=== PATIENT | female | born 1950 | race Caucasian/White ===

== ENCOUNTER 2019-10-14 00:56 | Outpatient (CLI) | payer MEDICARE, SELFPAY ==
[2019-10-14 18:35] LABS: SARS-CoV-2 RNA PCR Negative
== END 2019-10-14 00:57 | disposition home or self-care (01) ==
LOC: ANHCOVIDDT 00:57
PROVIDERS: PCP Internal Medicine; Visit Provider Internal Medicine Gastroenterology
DX: Z01.812 Encounter for preprocedural laboratory examination (principal); Z20.828 Contact with and (suspected) exposure to other viral communicable diseases
CPT/HCPCS: 87635; C9803; U0003

== ENCOUNTER 2019-10-16 01:13 | Day surgery (SDC) | payer MEDICARE, SELFPAY ==
[2019-10-08 15:00] VITALS: BMI 33.7
[2019-10-16 08:00] VITALS: BP 148/72; PULSE 60; RESP 18; TEMP 36.7; O2SAT 96
--- NOTE | 2019-10-16 08:13 | PM.IMHP ---
H&P: HPI History of Present Illness Date/Time: 10/16/19 08:13 Chief complaint: barretts esophagus Narrative: Reason for visit is EGD. This very pleasant lady's in consultation request of the primary physician. Impression: A very pleasant lady that is here with complaints of dysphagia. This may be secondary to globus type reaction. We evaluate for underlying ring or stricture. Evidence of intestinal metaplasia at the GE junction. History of esophageal spasm. The patient has a history of alternating constipation and diarrhea. This compatible with IBS. History of adenomatous colon polyps. Obesity. JENIFER. Breast cancer status post lumpectomy. HTN. HLD. Anxiety/depression. Osteoporosis. History PE. Recommendation: EGD. Fiber and probiotic for IBS. Further recommendations will be forthcoming. History: This very pleasant lady has a history of esophageal spasm and dysphagia. She complains dysphagia originating in the back of throat. The dysphagia with solids. She denies any nausea, vomiting, hematemesis, indigestion or significant heartburn. She does have a history of esophageal spasm in the past. Patient does report alternating constipation and diarrhea. She has a history adenomatous colon polyps and IBS. Patient is here for EGD. Physical examination: General: very pleasant patient in no acute distress. HEENT: Head was normocephalic sclerae is clear mouth without masses neck was supple. Heart: Rate rhythm regular without S3 or S4. Lungs: CTA. Abdomen: Soft with no guarding or rigidity. Bowel sounds were active. Neurologic: Cranial nerves 2 through 12 intact. No focal defects. No clonus. Musculoskeletal system: Revealed no joint tenderness or swelling no muscle atrophy. Extremities: Reveal no significant edema. Skin: Warm and dry with normal turgor. Mental status: intact. Patient is alert and oriented. Review of Systems Review of Systems: All systems reviewed & are unremarkable except as noted in HPI and below [facility] Surgical History Surgical History (Updated 10/16/19 @ 08:15 by Maxwell Mckoy MD) H/O thyroidectomy H/O: hysterectomy Social History Social History Gender identity (if verbalized by the patient): Female Meds Home Medications and Allergies Home Medications Medication Instructions Recorded Confirmed Type atorvastatin 20 mg PO DAILY 10/08/19 10/16/19 History escitalopram oxalate 20 mg PO DAILY 10/08/19 10/16/19 History lisinopril 10 mg PO DAILY 10/08/19 10/16/19 History omeprazole 40 mg PO DAILY 10/08/19 10/16/19 History Allergies Allergy/AdvReac Type Severity Reaction Status Date / Time adhesive Allergy Unknown RASH Verified 10/16/19 07:55 Sulfa (Sulfonamide Allergy Unknown Rash Verified 10/16/19 07:55 Antibiotics) sulfamethoxazole Allergy Unknown RASH Verified 10/16/19 07:55 Vital Signs Vital Signs - 24 hr 10/16/19 08:00 Temperature 36.7 C Pulse Rate 60 Respiratory Rate 18 Blood Pressure 148/72 H Pulse Oximetry 96
--- NOTE | 2019-10-16 08:14 | P.PNAN_ITS ---
Anes - Initial Pre Proc Eval Procedure: Operation Date: 10/16/19 08:30 Proposed Procedures p Esophagogastroduodenoscopy - Dwain Garcia DO Date/Time: 10/16/19 08:14 Surgeon: Dwain Garcia DO Pre Op Diagnosis: barretts esophagus Patient Data Age: 68 Gender: F Height: 5 ft 4 in Weight: 90 kg Last Vital Signs Temp 36.7 C 10/16/19 08:00 Pulse 60 10/16/19 08:00 Resp 18 10/16/19 08:00 BP 148/72 H 10/16/19 08:00 Pulse Ox 96 10/16/19 08:00 Allergies Allergy/AdvReac Type Severity Reaction Status Date / Time adhesive Allergy Unknown RASH Verified 10/16/19 07:55 Sulfa (Sulfonamide Allergy Unknown Rash Verified 10/16/19 07:55 Antibiotics) sulfamethoxazole Allergy Unknown RASH Verified 10/16/19 07:55 Home Medications Medication Instructions Recorded Confirmed Type atorvastatin 20 mg PO DAILY 10/08/19 10/16/19 History escitalopram oxalate 20 mg PO DAILY 10/08/19 10/16/19 History lisinopril 10 mg PO DAILY 10/08/19 10/16/19 History omeprazole 40 mg PO DAILY 10/08/19 10/16/19 History Patient hx anesthesia problems: none Family hx anesthesia problems: none [facility] Past Medical History Medical History (Updated 10/16/19 @ 08:15 by Maxwell Mckoy MD) Asthma HTN (hypertension) Hyperlipidemia JENIFER (obstructive sleep apnea) Surgical History Surgical History (Updated 10/16/19 @ 08:15 by Maxwell Mckoy MD) H/O thyroidectomy H/O: hysterectomy Social History Social History Gender identity (if verbalized by the patient): Female Anes - Eval Final PreProcedure Day of Procedure 10/16/19 08:14 Patient weight: obese Heart: regular rate and rhythm Lungs: clear to auscultation Airway: Mallampati scale class II Neurological: alert and oriented Last oral intake: >/= 8 hours ASA classification: III Emergent: no Anesthetic plan: proceed Anesthesia type and monitoring: general GIVS and standard monitoring Informed Consent: The patient's anesthetic plan and its attendant risks and benefits were discussed with the patient/family/POA. Questions were solicited and answers provided to the satisfaction of the patient/family/POA.
[2019-10-16] MEDS: LACTATED RINGERS 1,000 ML 150 ML IV CONT (08:17)
[2019-10-16 09:08] VITALS: BP 142/77; PULSE 69; RESP 22; O2SAT 95
[2019-10-16 09:18] VITALS: BP 144/81; PULSE 62; RESP 15; O2SAT 95
[2019-10-16 09:28] VITALS: BP 157/85; PULSE 63; RESP 18; O2SAT 96
== END 2019-10-16 09:50 | disposition home or self-care (01) ==
PROVIDERS: PCP Internal Medicine; Visit Provider Internal Medicine Gastroenterology
PROC: 0DJ08ZZ Inspection of Upper Intestinal Tract, Via Natural or Artificial Opening Endoscopic (ICD-10-PCS; CPT 43235; principal; 2019-10-16 08:30)
DX: R13.10 Dysphagia, unspecified (principal); D13.2 Benign neoplasm of duodenum; K31.89 Other diseases of stomach and duodenum; I10 Essential (primary) hypertension; E78.5 Hyperlipidemia, unspecified; J45.909 Unspecified asthma, uncomplicated; G47.33 Obstructive sleep apnea (adult) (pediatric); F41.8 Other specified anxiety disorders; M81.0 Age-related osteoporosis without current pathological fracture; E66.9 Obesity, unspecified; Z68.34 Body mass index [BMI] 34.0-34.9, adult; Z85.3 Personal history of malignant neoplasm of breast; Z86.711 Personal history of pulmonary embolism
CPT/HCPCS: 43239; 87081; 88305; J2001; J2704; J7120

== ENCOUNTER 2021-10-17 16:24 | Emergency (ER) | payer OTHER, SELFPAY ==
--- NOTE | ~2021-10-17 | XR_ITS ---
EXAMINATION: XR ankle RT min 3V DATE: 10/17/2021 16:51 INDICATION: Right ankle injury and pain. TECHNIQUE: 4 views of right ankle were obtained. COMPARISON: None. FINDINGS: There is a nondisplaced transverse fracture of distal tip of the fibula. There is curviline ar sclerosis in calcaneal tuberosity, consistent with a stress fracture. There is mild midfoot osteoa rthritis. There are enthesophytes at the posterior and plantar aspects of calcaneal tuberosity. There is an enthesophyte of medial malleolus. Ankle soft tissue swelling is noted. IMPRESSION: 1. Nondisplaced transverse fracture of distal tip of the fibula. 2. Stress fracture of calcaneal tuberosity. Reviewed, dictated and finalized at location A.
[2021-10-17 16:36] VITALS: BP 149/63; PULSE 59; RESP 16; TEMP 36.4; O2SAT 99
--- NOTE | 2021-10-17 17:03 | ED.LOWEXIN ---
HPI - Extremity Injury (Lower) General Chief Complaint: Extremity Injury, Lower Stated Complaint: Right ankle Pain Time Seen by Provider: 10/17/21 17:03 Source: patient Mode of arrival: ambulatory Limitations: no limitations History of Present Illness HPI Narrative: 70-year-old female presents with complaint of pain to right ankle. States that she was walking across the street and tripped and twisted right ankle in a drain hole. Ambulatory with limp. Swelling noted to lateral aspect. Range of motion decreased due to pain. Distal neurovascularly intact. All systems reviewed and negative except as noted above. Related Data Home Medications Medication Instructions Recorded Confirmed atorvastatin 20 mg tablet 20 mg PO DAILY 10/08/19 10/17/21 lisinopril 10 mg tablet 10 mg PO DAILY 10/08/19 10/17/21 Allergies Allergy/AdvReac Type Severity Reaction Status Date / Time adhesive Allergy Unknown RASH Verified 10/17/21 16:40 Sulfa (Sulfonamide Allergy Unknown Rash Verified 10/17/21 16:40 Antibiotics) sulfamethoxazole Allergy Unknown RASH Verified 10/17/21 16:40 Review of Systems Review of Systems: CONSTITUTIONAL: Denies fever, chills, or sweats. EYES: Denies visual changes, redness, or discharge. ENT: Denies rhinorrhea, congestion, sore throat, or otalgia. CARDIOVASCULAR: Denies chest pain, palpitations, or edema. RESPIRATORY: Denies cough or dyspnea. GASTROINTESTINAL: Denies abdominal pain, nausea, vomiting, or diarrhea. GENITOURINARY: Denies dysuria or hematuria. SKIN: Denies rash or itching. MUSCULOSKELETAL: Denies back pain, joint pain, or myalgia. Reports right ankle pain. NEUROLOGIC: Denies headache, numbness, or weakness. PSYCHIATRIC: Denies anxiety or depression. All other systems reviewed are negative, except as documented in HPI. [facility] Past Medical History Medical History (Updated 10/17/21 @ 17:12 by Meera Arreola NP) Asthma HTN (hypertension) Hyperlipidemia JENIFER (obstructive sleep apnea) Surgical History Surgical History (Updated 10/16/19 @ 08:15 by Maxwell Mckoy MD) H/O thyroidectomy H/O: hysterectomy Social History Social History Gender identity (if verbalized by the patient): Female Comments At time of signature, agree with nursing past medical, surgical, social and family history. There is no relevant family history pertinent to the presenting complaint. Exam Narrative: GENERAL: This is a well-nourished, well-developed patient, in no apparent distress. HEAD: normocephalic, atraumatic. EYES: PERRL. Sclera clear/white. Vision is grossly intact. EARS: External ears normal NOSE: External nose normal NECK: Neck supple, non-tender without lymphadenopathy, masses or thyromegaly. CARDIOVASCULAR: Regular rate and rhythm without murmurs, gallops, or rubs. RESPIRATORY: Clear to auscultation. Breath sounds equal bilaterally. No wheezes, rales, or rhonchi. SKIN: warm, Dry, intact with no suspicious lesions or rash, good texture and turgor. NEURO: awake, alert, and oriented to person, place and time. There were no obvious focal neurologic abnormalities. EXTREMITIES: tenderness lateral aspect R ankle with swelling. no deformity. no instability. Course Course Level of Care: Express Care Visit Vital Signs Vital signs: Vital Signs Temperature 36.4 C L 10/17/21 16:36 Pulse Rate 59 L 10/17/21 16:36 Respiratory Rate 16 10/17/21 16:36 Blood Pressure 149/63 H 10/17/21 16:36 Pulse Oximetry 99 10/17/21 16:36 Oxygen Delivery Room Air 10/17/21 16:36 Temperature 36.4 C L 10/17/21 16:36 Pulse Rate 59 L 10/17/21 16:36 Respiratory Rate 16 10/17/21 16:36 Blood Pressure 149/63 H 10/17/21 16:36 Pulse Oximetry 99 10/17/21 16:36 Oxygen Delivery Room Air 10/17/21 16:36 Reviewed MDM - Extremity Injury (Lower) MDM Narrative Medical decision making narrative: pt placed in short leg OCL by mickie Dior
== END 2021-10-17 17:32 | disposition home or self-care (01) ==
PROVIDERS: Emergency Provider Nurse Practitioner Family; PCP Internal Medicine
DX: S82.831A Other fracture of upper and lower end of right fibula, initial encounter for closed fracture (principal); X50.9XXA Other and unspecified overexertion or strenuous movements or postures, initial encounter; J45.909 Unspecified asthma, uncomplicated; I10 Essential (primary) hypertension; E78.5 Hyperlipidemia, unspecified; G47.33 Obstructive sleep apnea (adult) (pediatric)
CPT/HCPCS: 29515; 73610; 99214; G0463

== ENCOUNTER → 2021-12-26 12:05 | Outpatient (CLI) | payer OTHER, SELFPAY ==
--- NOTE | ~2021-12-26 | MM_ITS ---
EXAMINATION: MM screening cesar BI w ginger HISTORY: Screening mammogram TECHNIQUE: Craniocaudal and mediolateral oblique 3-D tomosynthesis images were obtained and synthetic 2-D images were generated. CAD analysis was submitted and interpreted. COMPARISON: No prior mammogram is available for comparison at this institution. BREAST PARENCHYMAL COMPOSITION: There are scattered areas of fibroglandular density. FINDINGS: RIGHT BREAST: There is architectural distortion in the lower-outer breast which may be related to maylin or lumpectomy. No suspicious mass or calcification are identified. LEFT BREAST: No suspicious mass, calcification, or architectural distortion are identified to suggest malignancy. IMPRESSION: 1. Right breast architectural distortion which may represent the patient's baseline however no compar [place] is currently available. 2. Comparison with prior mammograms is necessary. BI-RADS Category 0: Incomplete: Needs comparison with prior mammograms. Reviewed, dictated and finalized at location A. IMPRESSION: 1. Right breast architectural distortion which may represent the patient's base line however no comparison is currently available. 2. Comparison with prior mammograms is necessary. BI-RADS Category 0: Incomplete: Needs comparison with prior mammograms.
== END ==
PROVIDERS: PCP Internal Medicine; Visit Provider Internal Medicine
DX: Z12.31 Encounter for screening mammogram for malignant neoplasm of breast (principal); R92.8 Other abnormal and inconclusive findings on diagnostic imaging of breast
CPT/HCPCS: 77063; 77067

== ENCOUNTER 2022-01-04 13:03 | Outpatient (CLI) | payer OTHER, SELFPAY ==
--- NOTE | 2022-01-17 17:44 | WPDHOMESLEEP ---
Sleep Study - Home Unattended Date of Study: 01/04/22 Ordering Provider: Lonny Crawford, Interpreting Provider: Dania Luna, DO Home Sleep Study Type: Watch PAT Height: 1.63 m Weight: 89.358 kg Body Mass Index: 33.7 Neck Circumference (inches): 17 [place]: 10 Reason for Sleep Study Known JENIFER on CPAP. Needs a new machine and has occasional unrefreshing sleep. Sleep History The patient is a 71-year-old female with hypertension, hyperlipidemia, GERD, asthma, Weinbegr's esophagus, fatty liver, history of pulmonary embolism and JENIFER on CPAP that had a sleep study ordered by her primary care for evaluation of sleep apnea. The patient rarely awakens from sleep short of breath. She rarely awakens at night with heartburn, belching or cough. She occasionally snores but it is never loud enough that others complain. She rarely has trouble sleeping when she has a cold. She occasionally wakes up gasping for air throughout the night. She denies having breathing problems at night observed by herself or others. She rarely sweats excessively at night. She rarely has heart palpitations or irregular heartbeats during the night. She occasionally falls asleep during the day but never while driving. She denies cataplexy. She rarely has trouble at school or work due to sleepiness. She rarely feels unable to move while waking up or falling asleep. He rarely experiences vivid dreamlike scenes upon awakening or falling asleep. She denies feeling afraid of going to sleep. She rarely has nightmares. She rarely remembers her dreams. She frequently has thoughts racing through her mind. She occasionally feels sad or depressed and frequently has anxiety. She frequently has muscular tension. She occasionally notices parts of her body jerk. She occasionally kicks during the night. She occasionally has crawling and aching feelings in her legs and occasionally has leg pain during the night. She denies grinding her teeth during sleep. She frequently is bothered by pain during the day and occasionally awakened by pain during the night. She constantly wakes up feeling stiff in the morning. She constantly wakes up with sore or achy muscles. She constantly wakes up with pain in the neck, spine and other joints. She goes to bed between 11:00 p.m. to midnight on both weekdays and weekends. It takes her 15-30 minutes to fall asleep. She wakes up 1-2 times throughout the night for unknown reasons. When she awakens, she will stay in bed or she will do something on the computer or watch television if she is unable to fall asleep immediately. It can take her 1-2 hours to fall asleep. She wakes up between 7-830 a.m. on both weekdays and weekends. She will stay in bed for 5 minutes after waking up in the morning. She currently lives with her and brother. She will consume caffeinated beverages within 2 hours of bedtime. She does not engage in physical exercise before bedtime. She will watch television before falling asleep. She occasionally takes naps in the afternoon or the evening and they are not refreshing. He drinks 60 oz of caffeinated tea per day. She denies tobacco use. REPLACED BY [facility] Past Medical History Medical History (Updated 01/17/22 @ 17:57 by Dania Luna DO) Allergy Anxiety Arthritis Asthma COPD (chronic obstructive pulmonary disease) GERD (gastroesophageal reflux disease) HTN (hypertension) Hyperlipidemia JENIFER (obstructive sleep apnea) Surgical History Surgical History H/O thyroidectomy right side H/O: hysterectomy Family History Family History Father Asthma Hypertension Heart disease Sibling Asthma Cancer Diabetes mellitus Hypertension Heart disease Son Asthma Depression Grandparent Cancer Mother Hypertension Social History Social History (Reviewed 01/17/22 @ 17:53 by Moreno
[2022-01-17 17:48] VITALS: BMI 33.7
== END 2022-01-05 12:12 | disposition home or self-care (01) ==
PROVIDERS: PCP Internal Medicine; Visit Provider Student in an Organized Health Care Education/Training Program
DX: G47.33 Obstructive sleep apnea (adult) (pediatric) (principal)
CPT/HCPCS: 95800

== ENCOUNTER 2022-01-09 10:17 | Outpatient (RCR) | payer OTHER, SELFPAY ==
--- NOTE | 2022-01-09 11:31 | PTOPEVDC ---
Assessment and note entered by Kofi Arias, PT Thank you for referring Charmaine Prasad to [facility].? An evaluation has been completed. No further treatment is needed. Evaluation Information Assessment Status Evaluation Diagnosis R fibular and Calcaneal fx Onset 10/17/21 Subjective Information Patient reports stepping on the edge of a road drain and having her R ankle hurting. Patient originally thought it was a bad sprain, but ends up being a fx. She reports her R ankle feels good now, but she has not stressed it out much. Patient would like a home exercise program to continue to strengthen her ankle. Reported Pain Level Pain Score 1: Self Report Assessment PT Clinical Summary Amrita is a 71 year old female coming into the clinic for R ankle strengthening after a fx. Patient reports minimal pain and no big issues with her functional mobility. Patient would like a HEP for general strengthening as she thinks that would be sufficient for her rehab. Patient given an HEP of general range of motion and theraband strengthening along with single limb stance. No further physical therapy indicated. Plan of Care PT Services Indicated No Treatment Frequency and evaluation only. Duration
== END 2022-01-09 12:22 | disposition home or self-care (01) ==
LOC: ANHPT 10:17
PROVIDERS: PCP Internal Medicine; Visit Provider Nurse Practitioner
DX: M84.374D Stress fracture, right foot, subsequent encounter for fracture with routine healing (principal)
CPT/HCPCS: 97110; 97161

== ENCOUNTER 2022-03-01 08:21 | Outpatient (CLI) | payer OTHER, SELFPAY ==
--- NOTE | 2022-03-23 20:40 | WPDSLEEPSTUD ---
Sleep Study Date of Study: 03/01/22 Ordering Provider: Lonny Crawford, Interpreting Physician: Dania Luna, DO Sleep Study Type: CPAP Titration Height: 1.63 m Weight: 86.183 kg Body Mass Index: 32.5 Neck Circumference (inches): 17 [place]: 11 Reason for Sleep Study She has known JENIFER and had a WatchPAT home study done on 01/04/2022 to requalify for PAP Therapy. She had an overall AHI of 16.1 with a ANDREINA of 4. It was recommended that she have a PAP Titration. Sleep History The patient is a 71-year-old female with hypertension, hyperlipidemia, GERD, asthma, Weinberg's esophagus, fatty liver, history of pulmonary embolism and JENIFER on CPAP that had a sleep study ordered by her primary care for evaluation of sleep apnea.? The patient rarely awakens from sleep short of breath.? She rarely awakens at night with heartburn, belching or cough.? She occasionally snores but it is never loud enough that others complain.? She rarely has trouble sleeping when she has a cold.? She occasionally wakes up gasping for air throughout the night.? She denies having breathing problems at night observed by herself or others.? She rarely sweats excessively at night.? She rarely has heart palpitations or irregular heartbeats during the night.? She occasionally falls asleep during the day but never while driving.? She denies cataplexy.? She rarely has trouble at school or work due to sleepiness.? She rarely feels unable to move while waking up or falling asleep.? He rarely experiences vivid dreamlike scenes upon awakening or falling asleep.? She denies feeling afraid of going to sleep.? She rarely has nightmares.? She rarely remembers her dreams.? She frequently has thoughts racing through her mind.? She occasionally feels sad or depressed and frequently has anxiety.? She frequently has muscular tension.? She occasionally notices parts of her body jerk.? She occasionally kicks during the night.? She occasionally has crawling and aching feelings in her legs and occasionally has leg pain during the night.? She denies grinding her teeth during sleep.? She frequently is bothered by pain during the day and occasionally awakened by pain during the night.? She constantly wakes up feeling stiff in the morning.? She constantly wakes up with sore or achy muscles.? She constantly wakes up with pain in the neck, spine and other joints.? She goes to bed between 11:00 p.m. to midnight on both weekdays and weekends.? It takes her 15-30 minutes to fall asleep.? She wakes up 1-2 times throughout the night for unknown reasons.? When she awakens, she will stay in bed or she will do something on the computer or watch television if she is unable to fall asleep immediately.? It can take her 1-2 hours to fall asleep.? She wakes up between 7-830 a.m. on both weekdays and weekends.? She will stay in bed for 5 minutes after waking up in the morning.? She currently lives with her and brother.? She will consume caffeinated beverages within 2 hours of bedtime.? She does not engage in physical exercise before bedtime.? She will watch television before falling asleep.? She occasionally takes naps in the afternoon or the evening and they are not refreshing.? He drinks 60 oz of caffeinated tea per day.? She denies tobacco use. [facility] Past Medical History Medical History Allergy Anxiety Arthritis Asthma COPD (chronic obstructive pulmonary disease) GERD (gastroesophageal reflux disease) HTN (hypertension) Hyperlipidemia JENIFER (obstructive sleep apnea) Surgical History Surgical History H/O thyroidectomy right side H/O: hysterectomy Family History Family History Father Asthma Hypertension Heart disease Sibling Asthma Cancer Diabetes mellitus Hypertension Heart disease Son Asthma Depression Grandparent Can
[2022-03-23 21:03] VITALS: BMI 32.5
== END 2022-03-02 08:00 | disposition home or self-care (01) ==
LOC: ANHCSM 08:23
PROVIDERS: PCP Internal Medicine; Visit Provider Student in an Organized Health Care Education/Training Program
DX: G47.33 Obstructive sleep apnea (adult) (pediatric) (principal)
CPT/HCPCS: 95811

== ENCOUNTER 2023-10-22 09:37 | Emergency (ER) | payer MEDICARE, SELFPAY ==
--- NOTE | ~2023-10-22 | US_ITS ---
EXAMINATION: US venous doppler LE RT DATE: 10/22/2023 11:45 INDICATION: Lower limb pain, swelling, erythema and lump. TECHNIQUE: Grayscale ultrasound images without and with compression and Doppler ultrasound images of the right lower extremity veins were obtained. COMPARISON: None. FINDINGS: The visualized portions of right common femoral vein, profunda (deep) femoral vein, femoral vein, pop liteal vein, peroneal trunk, posterior tibial veins, peroneal veins, gastrocnemius vein and greater s aphenous vein outflow are patent. IMPRESSION: 1. No deep venous thrombosis in the right lower limb. Reviewed, dictated and finalized at location A.
[2023-10-22 09:40] VITALS: BP 171/77; PULSE 67; RESP 16; TEMP 36.6; O2SAT 97
--- NOTE | 2023-10-22 12:06 | ED.EXTPRO ---
HPI - Extremity Problem General Chief complaint: Extremity Problem,Nontraumatic Stated complaint: bump on back of R leg Time Seen by Provider: 10/22/23 11:07 Source: patient Mode of arrival: ambulatory Limitations: no limitations History of Present Illness HPI Narrative: Patient is a 72-year-old female who presents the ED with report of a bump to her R posterior thigh. Patient reports she first noticed a raised lump area to her R distal posterior thigh last night. States the area was tender to touch. She is concerned for a blood clot. States her leg feels tight. Denies significant swelling. Denies any wounds, redness, warmth. She does have history of previous PE, not currently on anticoagulation. denies chest pain or shortness of breath. Related Data Home Medications Medication Instructions Recorded Confirmed atorvastatin 20 mg tablet 20 mg PO DAILY 10/08/19 02/20/22 lisinopril 10 mg tablet 10 mg PO DAILY 10/08/19 02/20/22 acetaminophen 500 mg tablet 500 mg PO Q6H PRN 10/20/21 02/20/22 (Tylenol Extra Strength) albuterol sulfate 90 mcg/actuation 1 puff inhalation Q4H PRN 10/20/21 02/20/22 aerosol inhaler omeprazole 10 mg capsule,delayed 10 mg PO DAILY 02/20/22 02/20/22 release Allergies Allergy/AdvReac Type Severity Reaction Status Date / Time adhesive Allergy Unknown RASH Verified 10/22/23 09:43 Sulfa (Sulfonamide Allergy Unknown Rash Verified 10/22/23 09:43 Antibiotics) sulfamethoxazole Allergy Unknown RASH Verified 10/22/23 09:43 Review of Systems Review of Systems: All systems reviewed & are unremarkable except as noted in HPI. All systems reviewed & are unremarkable except as noted in HPI and below PMFSH Past Medical History Medical History Allergy Anxiety Arthritis Asthma COPD (chronic obstructive pulmonary disease) GERD (gastroesophageal reflux disease) HTN (hypertension) Hyperlipidemia JENIFER (obstructive sleep apnea) Surgical History Surgical History H/O thyroidectomy right side H/O: hysterectomy Family History Family History Father Asthma Hypertension Heart disease Sibling Asthma Cancer Diabetes mellitus Hypertension Heart disease Son Asthma Depression Grandparent Cancer Mother Hypertension Social History Social History Smoking status: Never smoker Alcohol intake: never Substance use: never Living arrangements: with family Occupation/Education: retired Additional occupation/education comments: music instructor Gender identity (if verbalized by the patient): Female Exam Narrative: GENERAL: Well appearing, obese with BMI of 30.8, non-toxic, in no acute distress. HEAD: Normocephalic, atraumatic. RESPIRATORY: Airway patent, respirations nonlabored. Clear to auscultation bilaterally, no rales, rhonchi, wheezing. CARDIOVASCULAR: Regular rate and rhythm without murmurs, rubs, or gallops. Peripheral pulses intact. MUSCULOSKELETAL: Moves all extremities. No gross deformities. superficial venous varicosities to posterior thigh. No significant focal lump/ lump /contusion. No redness, warmth elbow wounds. No significant swelling throughout lower extremity noted. Sensation intact. SKIN: Warm, dry, normal color. NEURO: A&O X3. Speech clear. PSYCHIATRIC: Appropriate mood and affect. Normal interaction. Course Vital Signs Vital signs: Vital Signs Temperature 97.9 F 10/22/23 09:40 Pulse Rate 67 10/22/23 09:40 Respiratory Rate 16 10/22/23 09:40 Blood Pressure 171/77 H 10/22/23 09:40 Pulse Oximetry 97 10/22/23 09:40 Oxygen Delivery Room Air 10/22/23 09:40 Temperature 97.9 F 10/22/23 09:40 Pulse Rate 67 10/22/23 09:40 Respiratory Rate 16 10/22/23 09:40
== END 2023-10-22 12:59 | disposition home or self-care (01) ==
PROVIDERS: Emergency Provider Physician Assistant
DX: R22.41 Localized swelling, mass and lump, right lower limb (principal); F41.9 Anxiety disorder, unspecified; M19.90 Unspecified osteoarthritis, unspecified site; J45.909 Unspecified asthma, uncomplicated; K21.9 Gastro-esophageal reflux disease without esophagitis; I10 Essential (primary) hypertension; E78.5 Hyperlipidemia, unspecified; G47.30 Sleep apnea, unspecified
CPT/HCPCS: 93971; 99284

== ENCOUNTER 2024-06-12 13:45 | Outpatient (RCR) | payer MEDICARE, SELFPAY ==
[2024-05-30 11:58] VITALS: PULSE 65
== END 2024-08-21 13:10 | disposition home or self-care (01) ==
LOC: ANHCPREHAB 13:45
DX: Z95.1 Presence of aortocoronary bypass graft (principal)
CPT/HCPCS: 93798